=== PATIENT | male | born 1945 | race Caucasian/White ===

== ENCOUNTER → 2017-11-13 11:47 | Outpatient (CLI) | payer MEDICARE, MEDICAID, SELFPAY ==
--- NOTE | 2017-11-13 13:20 | STRESSREP ---
Stress Test Report Treadmill EKG results: Resting EKG: Normal sinus rhythm, normal axis, normal intervals. Treadmill EKG: The patient exercise according to Puneet protocol for 5 minutes and 0 seconds achieving a maximum workload of 7.00 METS. Resting heart rate was initially 66 beats a minute and myriam to maximum 130 bpm which represents 87% of the maximal age-predicted heart rate. Resting blood pressure is 130/70 and myriam to maximum 172/70. Test was terminated due to dyspnea and leg pain. During exercise the patient's heart rate increased as expected. Patient had no dynamic EKG changes to suggest ischemia. Rare PVCs noted. Conclusions: Normal, adequate treadmill EKG. Negative for ischemia by EKG criteria. No anginal symptoms noted. Rare PVCs noted. Appropriate blood pressure response to exercise. Average exercise capacity for age.
--- NOTE | 2017-11-17 11:53 | LEAS ---
Arterial Study - Arterial Study Arterial Study: This is a 72-year-old male who presents with hypertension and lower extremity pain and cramping with ambulation. The patient has a known history of smoking. Suspecting the presence of atherosclerotic peripheral arterial occlusive disease and intermittent claudication, the patient was brought to the noninvasive vascular laboratory at this time for the purpose of bilateral noninvasive lower extremity arterial assessment. Doppler signal assessment was used to evaluate the pulses at ankle level bilaterally. The posterior tibial and dorsalis pedis pulses were biphasic bilaterally. Segmental limb pressures were obtained bilaterally. The right ankle pressure, as determined by posterior tibial pulse, was measured at 104 mmHg. The right ankle pressure, as determined by dorsalis pedis pulse, was measured at 111 mmHg. The right digital pressure was measured at 72 mmHg. The left ankle pressure, as determined by posterior tibial pulse, was measured at 104 mmHg. The left ankle pressure, as determined by dorsalis pedis pulse, was measured at 124 mmHg. The left digital pressure was measured at 84 mmHg. Pulse-volume recordings were obtained at ankle and digital levels bilaterally. Waveform amplitudes appeared to be satisfactory bilaterally. Resting ankle-brachial indices were calculated bilaterally. The resting right ankle-brachial index was calculated to be 0.75. The resting left ankle-brachial index was calculated be 0.84. Digital-brachial indices were calculated bilaterally. The right digital-brachial index was calculated to be 0.49. The left digital-brachial index was calculated to be 0.57. 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 Biphasic waveforms are noted at ankle level bilaterally. The resting right ankle-brachial index is moderately diminished, and the right digital-brachial index is moderately diminished, suggesting the presence of moderate arterial occlusive disease in the right lower extremity. The resting left ankle-brachial index is mildly diminished, and the left digital-brachial index is mildly diminished, consistent with mild arterial occlusive disease in the left lower extremity. Clinical correlation is advised.
== END ==
PROVIDERS: Family Provider Family Medicine; PCP Family Medicine
DX: R07.89 Other chest pain (principal); I10 Essential (primary) hypertension; I73.9 Peripheral vascular disease, unspecified; Z87.891 Personal history of nicotine dependence
CPT/HCPCS: 93017; 93922

== ENCOUNTER 2022-04-25 13:54 | Emergency (ER) | payer MEDICARE, MEDICAID, SELFPAY ==
[2022-04-25 13:54] VITALS: BP 219/95; PULSE 64; RESP 16; TEMP 36.2; O2SAT 99; BMI 25.0
[2022-04-25 14:06] VITALS: BP 211/91; PULSE 61; RESP 18; O2SAT 98
--- NOTE | 2022-04-25 14:36 | EKG12_ITS ---
Test Reason : HTN Blood Pressure : / mmHG Vent. Rate : 056 BPM Atrial Rate : 056 BPM P-R Int : 162 ms QRS Dur : 106 ms QT Int : 420 ms P-R-T Axes : 041 -23 048 degrees QTc Int : 405 ms Sinus bradycardia Minimal voltage criteria for LVH, may be normal variant ( Sami product ) Borderline ECG Confirmed by MARYANA NO, [facility] ([id number]), metropolitan editor NANCY EASON ([id number]) on 04/27/2022 8:56:33 AM Referred By: Confirmed By:JACLYN MIJARES MD
--- NOTE | 2022-04-25 14:38 | EDS_ITS ---
HPI History of Present Illness Chief Complaint: Hypertension Informant: patient and spouse/S.O. Narrative Narrative: Patient present secondary to elevated blood pressure. He was seen by Dr. Puneet Thomas last week due to intermittent burning sensation in the left side of his chest that is been ongoing for months. He was unsure if it was lung related or cardiac. Patient's blood pressure in the office was [address] Thomas had ordered an echocardiogram and patient is scheduled to see cardiology next week. Patient was in today for his echocardiogram and his blood pressure was over 200 systolic and he was encouraged to come to the emergency room. Patient states he has been getting a burning chest pain in the left chest with exertion that improves with rest for the last several months. He denies dyspnea. He has not been having headaches. His primary care physician is in [facility]. He goes back for physical exams every 3 months. He states he had been told in the past that he had high blood pressure and was on lisinopril and amlodipine for a short time. When he went back to see his primary care physician he was told to stop taking the medication because he did not have high blood pressure. He has not been on it in a couple years. [facility] Medical History Anxiety BPH (benign prostatic hyperplasia) Chest pain Dizziness Essential hypertension Hyperlipidemia TIA (transient ischemic attack) Home Medications aspirin 81 mg tablet,delayed release (Adult Aspirin Regimen) 81 mg PO DAILY 11/18/17 [History Last Taken Unknown] clopidogrel 75 mg tablet (Plavix) 75 mg PO DAILY 04/19/22 [History Last Taken Unknown] Allergy/AdvReac Type Severity Reaction Status Date / Time No Known Allergies Allergy Verified 04/19/22 07:15 Family History Mother Alcohol abuse Father Psychiatric problem Grandfather Cancer Social History Smoking Status: Never smoker ROS ROS ED Constitutional Constitutional ED: Denies chills or fever(s) Eyes Eyes: Denies change in vision or discharge from eye(s) ENT ENT ED: Denies discharge from eye(s), rhinorrhea or sore throat Cardiovascular Cardiovascular: Reports chest pain; Denies palpitations Respiratory/Chest Respiratory/Chest: Denies cough or dyspnea Gastrointestinal Gastrointestinal: Denies abdominal pain, diarrhea, nausea or vomiting Genitourinary Genitourinary ED: Denies dysuria Musculoskeletal Musculoskeletal: Denies back pain or extremity pain Integumentary Denies Abrasions or rash Neurologic Neurologic: Denies headache(s) or weakness Allergic/Immunologic Allergic/Immunologic ED: Denies lip swelling or urticaria EXAM Physical Exam Const Vital Signs: 04/25/22 13:54 04/25/22 14:04 04/25/22 14:06 Temperature 97.2 F L Temperature Source Temporal Pulse Rate 64 61 Respiratory Rate 16 18 Respiratory Effort Normal Respiratory Pattern Normal Blood Pressure 219/95 H 211/91 H Blood Pressure Mean 136 131 Pulse Ox 99 98 Oxygen Delivery Method Room Air Room Air 04/25/22 15:00 04/25/22 16:00 Temperature Temperature Source Pulse Rate 56 L 56 L Respiratory Rate 18 18 Respiratory Effort Respiratory Pattern Blood Pressure 192/87 H 180/82 H Blood Pressure Mean 122 114 Pulse Ox 99 98 Oxygen Delivery Method Room Air Room Air Positive well nourished and well developed General Appearance ED: well developed HEENT Reports normocephalic and head/scalp atraumatic Eyes PERRL and EOMs intact bilaterally Neck supple Chest Wall inspection of chest normal and palpation of chest normal Resp normal respiratory effort and clear to auscultation bilaterally Cardio regular rate and regular rhythm GI normal to inspection, nondistended, normoactive bowel sounds Palpation: soft Extremity normal to inspection Neuro oriented x3 and no sensory deficits noted Sensorium / Orientation: alert Motor Exam: strength 5/5 throughout Psych mental status grossly normal Skin no rashes or lesions noted MDM MDM MDM Narrative Medical decision making narrative: Patient placed on landing scaler. EKG obtained given the patient has been having episodes of chest pain. Lab work obtained to evaluate for anemia or electrolyte derangement. Troponin obtained to evaluate for cardiac ischemia/damage. Patient was given 10 mg of IV labetalol. Lab Data Attestation: I reviewed the patient's lab results. Labs: Laboratory Results - last 24 hr 04/25/22 04/25/22 14:55 14:55 WBC 6.3 RBC 4.55 L Hgb 14.5 Hct 43.0 MCV 94.5 H MCH 31.9 MCHC 33.7 RDW Std Deviation 46.1 H RDW Coeff of Rahul 13.3 Plt Count 238 MPV 9.5 Immature Gran % (Auto) 0.300 Neut % (Auto) 56.4 Lymph % (Auto) 29.7 Pitkin % (Auto) 10.6 H Eos % (Auto) 2.4 Baso % (Auto) 0.6 Absolute Neuts (auto) 3.6 Absolute Lymphs (auto) 1.87 Nucleated RBC % 0 Sodium 142 Potassium 3.3 L Chloride 106 Carbon Dioxide 30.0 Anion Gap 6 BUN 11 Creatinine 0.93 Estim Creat Clear Calc 63.18 Est GFR (MDRD) Af Amer 102 Est GFR (MDRD) Non-Af 84 BUN/Creatinine Ratio 11.9 Glucose 93 Calcium 8.9 Troponin I High Sens 22 Radiography Chest X-Ray - ED: 1 View, Read by ED Physician and Chronic Changes Diagnostic Testing: Clinical Impression(s) from Imaging Studies Chest X-Ray 04/25/22 15:23 IMPRESSION: Hyperinflation. Minimal increased markings at the right lung base. This may represent either atelectasis and/or scarring. Electronically Signed: Corona Burris MD at 15:38 EST , EKG Initial EKG: Attestation: I personally reviewed and interpreted this EKG as follows: Interpretation: Sinus Bradycardia (Sinus bradycardia 56 bpm. No acute ischemia.) Treatment and Re-Evaluation Narrative: On repeat evaluation patient resting comfortably. Systolic blood pressure is now in the 170s. CBC and chemistry studies are unremarkable other than slightly low potassium at 3.3. This is replaced orally.. Troponin is normal. Patient is scheduled to see cardiology in 4 days. He has amlodipine and lisinopril at home. He will take this medication until he is seen early next week. At that time cardiology will better be able to evaluate whether this medication is sufficient for him or whether dose needs changed or a different medication. Patient is comfortable with this plan. Return instructions given. Discharge Plan Triage Chief Complaint: Hypertension ED Provider: Monserrat Davis Dx/Rx/DC Orders Clinical Impression: Hypertension, Chest pain Instructions: ED Hypertension New Begin Treatment Prescriptions: No Action aspirin [Adult Aspirin Regimen] 81 mg tablet,delayed release (DR/EC) 81 mg PO DAILY clopidogrel [Plavix] 75 mg tablet 75 mg PO DAILY Primary Care Provider: Vishal Ham Referrals: Vishal Ham MD [Primary Care Provider] - Activity Restrictions/Additional Instructions: As discussed, please follow-up with cardiology next week as scheduled. In the meantime, please take the lisinopril/amlodipine that you have at home. They will better be able to evaluate whether this medication will be sufficient to control your blood pressure or whether a different medication may be required. If you have a blood pressure cuff available, please check your blood pressure a couple times a day and keep a journal as this will help the doctor determine what medication is best for you. Disposition Disposition: Home, Self Care
--- NOTE | 2022-04-25 14:44 | NURSING ---
NO OLD EKGS
[2022-04-25 15:00] VITALS: BP 192/87; PULSE 56; RESP 18; O2SAT 99
[2022-04-25 15:06] LABS: Absolute Lymphocyte Count 1.87 X10^3/uL (0.83-4.51); Absolute Neutrophil Count 3.6 X10^3/uL (2.0-7.7); Basophil# 0.04 X10^3/uL; Basophil% 0.6 % (0-1); Eosinophil# 0.15 X10^3/uL; Eosinophils% 2.4 % (0-5); Hemoglobin 14.5 g/dL (13.0-16.5); Lymphocyte # 1.87 X10^3/ul (0.83-4.51); Lymphocyte % 29.7 % (19-41); Mean Corp Hgb Conc 33.7 g/dL (32-36); Mean Corpuscular Hgb 31.9 pg (27.0-32.0); Mean Corpuscular Volume 94.5 fL (80-94); Mean Platelet Vol. 9.5 fl (6.2-12.0); Monocyte# 0.67 X10^3/uL; Monocyte% 10.6 % (0-10); NRBC Flagged by Analyzer 0 % (0-5); Neutrophil # 3.55 X10^3/uL (2.7-7.7); Neutrophil % 56.4 % (47-70); Platelet Count 238 K/mm3 (150-450); RBC Distribution Width CV 13.3 % (11.6-14.6); RBC Distribution Width SD 46.1 fl (35.1-43.9); Red Blood Count 4.55 M/mm3 (4.6-6.2); White Blood Count 6.3 K/mm3 (4.4-11.0)
--- NOTE | 2022-04-25 15:23 | RAD_ITS ---
STUDY: X-RAY CHEST REASON FOR EXAM: Male, 76 years old. Cp TECHNIQUE: Single AP portable view of the chest. COMPARISON: None. FINDINGS: EKG electrodes are seen. Hyperinflation. Minimal increased markings at the right lung base. There is no demonstrated pleural abnormality. Normal size heart. Normal mediastinum and winston. Normal visualized pulmonary arteries. There is atherosclerotic tortuosity of the aortic arch and descending thoracic aorta. There are diffuse degenerative changes of the visualized thoracic spine. Normal visualized ribs, clavicles, and shoulders. There is no demonstrated abnormality of the visualized soft tissue structures of the upper abdomen. RAD/Chest 1 View (Portable) IMPRESSION: Hyperinflation. Minimal increased markings at the right lung base. This may represent either atelectasis and/or scarring. Electronically Signed: Corona Burris MD at 15:38 EST ,
[2022-04-25 15:27] LABS: Anion Gap 6 (5-15); BUN 11 mg/dL (7-18); BUN/Creat Ratio 11.9 RATIO (10-20); Calcium,Total 8.9 mg/dL (8.5-10.1); Chloride 106 mmol/L (98-107); Creatinine, Serum 0.93 mg/dL (0.70-1.30); EST Glomerular Filtration Rate 84 mL/min (>60); Est Glom Filt Rate - Afr Amer 102 mL/min (>60); Estimated Creatinine Clearance 63.18 ml/min; Glucose 93 mg/dL (74-106); Potassium 3.3 mmol/L (3.5-5.1); Sodium Level 142 mmol/L (136-145); Troponin-I HS 22 pg/mL (3.0-78.0)
[2022-04-25] MEDS: Labetalol (Prefilled) 20 MG/4 ML 10 MG IV (15:32)
[2022-04-25] MEDS: Potassium Chloride Oral Tablet 20 MEQ 40 MEQ PO (15:52)
[2022-04-25 16:00] VITALS: BP 180/82; PULSE 56; RESP 18; O2SAT 98
[2022-04-25 17:02] VITALS: BP 179/81; PULSE 78; RESP 16; O2SAT 99
== END 2022-04-25 17:16 | disposition home or self-care (01) ==
PROVIDERS: Emergency Provider Emergency Medicine; PCP Family Medicine; Visit Provider Emergency Medicine
DX: I10 Essential (primary) hypertension (principal); R07.9 Chest pain, unspecified; E78.5 Hyperlipidemia, unspecified; Z86.73 Personal history of transient ischemic attack (TIA), and cerebral infarction without residual deficits; Z79.82 Long term (current) use of aspirin; R06.02 Shortness of breath; I07.1 Rheumatic tricuspid insufficiency
CPT/HCPCS: 71045; 80048; 84484; 85025; 93005; 93306; 96374; 99284

== ENCOUNTER → 2022-04-25 | Outpatient (CLI) | payer MEDICARE, MEDICAID, SELFPAY ==
--- NOTE | 2022-04-25 13:01 | ECHOD_ITS ---
Reason For Study: SOB Procedure This was a 2D Doppler, Color Flow transthoracic echocardiogram. The study was technically difficult. Exam performed in department. Left Ventricle Normal LV size. Left ventricular systolic function is normal. Stage 1 diastolic dysfunction. The estimated ejection fraction is 55 %. No regional wall motion abnormalities noted. Right Ventricle Normal RV size. Normal systolic function. Atria Normal left atrium. Normal right atrium. Mitral Valve Normal mitral valve. Mild (1+) mitral valve insufficiency. Tricuspid Valve Normal tricuspid valve. Mild tricuspid valve insufficiency. Aortic Valve Trisinus/trileaflet aortic valve. Great Vessels Normal aortic root. The pulmonary artery is normal size. Normal inferior vena cava. Pericardium/Pleural No pericardial effusion. MMode/2D Measurements & Calculations LVIDd: 5.1 cm IVSd: 1.3 cm LA dimension: 3.1 cm LVIDs: 3.4 cm LVPWd: 1.0 cm RVDd: 3.4 cm FS: 32.7 % LAV(MOD-bp): 51.5 ml LA A4 area: 18.6 cm2 RA A4 area: 13.1 cm2 LAV(MOD-bp) Indexed: 27.6 ml/m2 LAV(MOD-sp2): 49.4 ml LAV(MOD-sp4): 54.2 ml Time Measurements MV dec time: 0.34 sec Doppler Measurements & Calculations MV E max alan: 57.5 cm/sec Lat Peak E' Alan: 9.2 cm/sec Med Peak E' Alan: 6.9 cm/sec MV A max alan: 59.6 cm/sec E/E' lat: 6.2 E/E' med: 8.3 MV E/A: 0.96 MV V2 max: 62.7 cm/sec MV P1/2t max alan: 63.1 cm/sec Ao V2 max: 130.0 cm/sec MV max P.6 mmHg MV P1/2t: 107.4 msec Ao max P.8 mmHg MV V2 mean: 36.0 cm/sec Ao V2 mean: 91.7 cm/sec MV mean P.62 mmHg MV dec slope: 172.2 cm/sec2 Ao mean P.8 mmHg MV V2 VTI: 22.7 cm MVA(P1/2t): 2.0 cm2 Ao V2 VTI: 31.9 cm AV (velocity ratio): 0.55 AI max alan: 285.8 cm/sec LV V1 max: 85.1 cm/sec MR max alan: 439.2 cm/sec AI max P.7 mmHg LV V1 max P.9 mmHg MR max P.2 mmHg LV V1 mean P.5 mmHg AI dec slope: 120.1 cm/sec2 LV V1 mean: 58.3 cm/sec AI P1/2t: 697.1 msec LV V1 VTI: 17.4 cm PA V2 max: 101.6 cm/sec TR max alan: 260.8 cm/sec TR max P.2 mmHg ECHO/Echo Complete Interpretation Summary Normal LV size. Left ventricular systolic function is normal. Stage 1 diastolic dysfunction. The estimated ejection fraction is 55 %. Mild tricuspid valve insufficiency. Ordering Physician: Puneet Thomas Referring Physician: Puneet Thomas Performed By: Luis Norman RCS
== END | disposition home or self-care (01) ==
PROVIDERS: PCP Family Medicine; Referring Provider Internal Medicine Critical Care Medicine; Visit Provider Internal Medicine Critical Care Medicine
DX: R06.02 Shortness of breath (principal); I07.1 Rheumatic tricuspid insufficiency
CPT/HCPCS: 93306

== ENCOUNTER → 2022-04-26 | Outpatient (CLI) | payer MEDICARE, MEDICAID, SELFPAY | END | disposition home or self-care (01) | PROVIDERS: PCP Family Medicine; Referring Provider Internal Medicine Critical Care Medicine; Visit Provider Internal Medicine Critical Care Medicine | DX: R06.02 Shortness of breath (principal) ==

== ENCOUNTER → 2022-05-03 | Outpatient (CLI) | payer MEDICARE, MEDICAID, SELFPAY ==
[2022-05-03 16:58] LABS: BUN 17 mg/dL (7-18); BUN/Creat Ratio 16.7 RATIO (10-20); Calcium,Total 9.5 mg/dL (8.5-10.1); Cholesterol 211 mg/dL (200); Creatinine, Serum 1.02 mg/dL (0.70-1.30); EST Glomerular Filtration Rate 75 mL/min (>60); Est Glom Filt Rate - Afr Amer 91 mL/min (>60); Glucose 93 mg/dL (74-106); Triglycerides 136 mg/dL
[2022-05-03 16:59] LABS: Anion Gap 7 (5-15); Chloride 99 mmol/L (98-107); High Density Lipoprotein 56 mg/dL; Potassium 3.1 mmol/L (3.5-5.1); Sodium Level 137 mmol/L (136-145); Thyroid Stim Hormone (TSH) 1.64 uIU/mL (0.358-3.74); Very Low Density Lipoprotein 27 mg/dL (5-40)
--- NOTE | 2022-05-07 16:32 | PFTCOMP ---
COMPLETE PULMONARY FUNCTION TEST INTERPRETATION Brief HPI: Patient is a 76-year-old male, currently under the care of myself, who presents to [facility] for complete pulmonary function tests secondary to diagnosis of dyspnea. Respiratory therapist reports good effort and reproducible results. Patient refused plethysmography secondary to claustrophobia. Interpretation: Forced expiration spirometry shows no large airways obstructive ventilatory defect with an FEV1 of 111% predicted. There is no significant bronchodilator response by strict ATS criteria. Spirograms are of good quality and plateau normally. The respiratory flow volume loop shows a normal pattern. Diffusion capacity by carbon monoxide is normal at 109% predicted. The airway resistance is not calculated. No previous pulmonary function tests were available for review. Impression: Normal spirometry and diffusion capacity
== END | disposition home or self-care (01) ==
PROVIDERS: Internal Medicine Cardiovascular Disease; PCP Family Medicine; Referring Provider Internal Medicine Critical Care Medicine; Visit Provider Internal Medicine Critical Care Medicine
DX: R06.02 Shortness of breath (principal); I10 Essential (primary) hypertension; R07.9 Chest pain, unspecified; E78.5 Hyperlipidemia, unspecified
CPT/HCPCS: 36415; 80048; 80061; 84443; 94060; 94729

== ENCOUNTER → 2022-05-08 | Outpatient (CLI) | payer MEDICARE, MEDICAID, SELFPAY ==
[2022-05-08 13:49] VITALS: PULSE 101; PULSE 105; PULSE 108; PULSE 109; PULSE 98; PULSE 99; O2SAT 96; O2SAT 97; O2SAT 98
--- NOTE | 2022-05-08 15:48 | PCM.PSN.6M ---
PSN 6 Minute Walk Test 6 Minute Walk Test 6 Minute Walk Test: 6 Minute Walk Test PSN:6-Minute Walk Test Start: 05/08/22 13:49 Freq: Status: Active Protocol: [id number].[id number] Document 05/08/22 13:49 ERIBERTO (Rec: 05/08/22 13:51 ERIBERTO [id number]) 6 Minute Walk Test Date Performed 05/08/22 Time Performed 13:00 Height 5 ft 7 in Weight: 71.668 kg Weight in Pounds 158.[address]: Puneet Thomas Assistive device used: None Pre-test Oxygen Delivery Method Room Air Pulse Ox (%) 97 Pulse Rate (60-100 beats/min) 99 Dyspnea Fiona Scale (0-10) 0 Exertion Fiona Scale (6-20) 6 1st minute Oxygen Delivery Method Room Air Pulse Ox (%) 97 Pulse Rate (60-100 beats/min) 99 2nd minute Oxygen Delivery Method Room Air Pulse Ox (%) 96 Pulse Rate (60-100 beats/min) 101 H 3rd minute Oxygen Delivery Method Room Air Pulse Ox (%) 96 Pulse Rate (60-100 beats/min) 101 H 4th minute Oxygen Delivery Method Room Air Pulse Ox (%) 98 Pulse Rate (60-100 beats/min) 105 H 5th minute Oxygen Delivery Method Room Air Pulse Ox (%) 97 Pulse Rate (60-100 beats/min) 108 H 6th minute Oxygen Delivery Method Room Air Pulse Ox (%) 97 Pulse Rate (60-100 beats/min) 109 H Post-test Oxygen Delivery Method Room Air Pulse Ox (%) 97 Pulse Rate (60-100 beats/min) 98 Full Laps Walked 13 Partial Lap, Number of Tiles Walked 12 Total Distance Walked (ft) 779 Interpretation Interpretation: The patient was able to ambulate 779 feet over the course of 6 minutes on room air with no assistive devices or breaks. The patient experienced no significant desaturation, but did have tachycardia as high as 109 bpm noted during testing. These findings are consistent with a cardiovascular limitation exercise tolerance. Recommendations Recommendations: No supplemental oxygen is indicated at this time.
== END | disposition home or self-care (01) ==
LOC: PSN 12:59
PROVIDERS: PCP Family Medicine; Referring Provider Internal Medicine Critical Care Medicine; Visit Provider Internal Medicine Critical Care Medicine
DX: R07.9 Chest pain, unspecified (principal); I10 Essential (primary) hypertension
CPT/HCPCS: 94618

== ENCOUNTER 2023-10-21 21:33 | Emergency (ER) | payer MEDICARE, MEDICAID, SELFPAY ==
[2023-10-21 21:37] VITALS: BP 196/82; PULSE 86; RESP 18; TEMP 36.6; O2SAT 99; BMI 24.5
--- NOTE | 2023-10-21 22:18 | EKG12_ITS ---
Test Reason : WEAKNESS Blood Pressure : / mmHG Vent. Rate : 063 BPM Atrial Rate : 063 BPM P-R Int : 164 ms QRS Dur : 102 ms QT Int : 380 ms P-R-T Axes : 036 -20 051 degrees QTc Int : 388 ms Normal sinus rhythm Minimal voltage criteria for LVH, may be normal variant ( Sami product ) Borderline ECG Confirmed by MARYANA NO, [facility] ([id number]), multimedia editor INNA VIDAL ([id number]) on 10/25/2023 10:10:07 AM Referred By: Confirmed By:JACLYN MIJARES MD
--- NOTE | 2023-10-21 22:18 | CT_ITS ---
EXAM: CT HEAD WITHOUT INTRAVENOUS CONTRAST CLINICAL INDICATION: weakness, BLE TECHNIQUE: Multiple axial images were obtained of the head without intravenous contrast. This CT exam was performed using one or more of the following dose reduction techniques: automated exposure control, adjustment of the mA and/or kV according to patient size, and/or use of iterative reconstruction technique. COMPARISON: No relevant prior studies available. FINDINGS: BRAIN AND EXTRA-AXIAL SPACES: Unremarkable. No intra- or extra-axial hemorrhage. No evidence of acute infarct. No intracranial mass or mass effect. There is preservation of the hernández/white matter interface. Posterior fossa structures are unremarkable. Ventricles are appropriate for age. No hydrocephalus. Basal cisterns are patent. BONES/JOINTS: Unremarkable. No discrete lytic or blastic abnormalities. SINUSES: Unremarkable as visualized. Clear. MASTOID AIR CELLS: Unremarkable. Clear. ORBITS: Visualized globes, extraocular muscles, optic nerves and retrobulbar fat appear unremarkable. CT/Brain/Head without Contrast IMPRESSION: Negative head/brain CT without intravenous contrast. Electronically Signed: Bertin Terry MD at 23:15 EDT ,
--- NOTE | 2023-10-21 22:21 | EX.ED.DYSGE1 ---
HPI History of Present Illness Chief Complaint: Weakness Informant: patient, spouse/S.O. and family Narrative Narrative: 78-year-old male presenting because he feels weak mostly in his legs, he is seen at about 10 PM and he states that he has felt like this all day since he woke up this morning. He went to bed at about 3 AM, took an Ativan before going to bed which he usually does, and states when he went to bed he did not feel the weakness in his legs. States he has been on Ativan for the past 1.5 years and wants to get off of it, it is his only medication prior to going to the ER 2 days ago and can for chest discomfort and indigestion and belching, they worked him up for cardiac causes and discharged him on amlodipine 5 mg. He states he used to be on blood pressure medication a long time ago but he took himself off of it and then his doctor told him that his blood pressure was doing okay in order for him to stay off of it. He states he has had no recurrent chest discomfort since 2 days ago, and when asked about weakness in his arms, he states they feel fine and they have all day but his family keeps asking him why he told them earlier that his left arm was feeling weak and he continues to deny feeling that earlier. [facility] Medical History Hypertension TIA (transient ischemic attack) Essential hypertension BPH (benign prostatic hyperplasia) Hyperlipidemia Dizziness Anxiety Chest pain Home Medications ?Medication ?Instructions ?Recorded ?Last Taken ?Type famotidine 20 mg tablet 20 mg PO BID 10/21/23 Unknown History lorazepam 0.5 mg tablet 0.5 mg PO DAILY 10/21/23 Unknown History amlodipine 5 mg tablet 10 mg (2 x 5 mg) PO DAILY #60 tabs 10/22/23 Unknown Rx lisinopril 20 mg tablet 20 mg PO DAILY #30 tabs 10/22/23 Unknown Rx Allergy/AdvReac Type Severity Reaction Status Date / Time No Known Allergies Allergy Verified 10/21/23 21:37 Family History (Reviewed 07/11/22 @ 13:11 by Natali Barba BALL TRUING MACHINE OPERATOR, BALL TRUING MACHINE OPERATOR-C) Mother Alcohol abuse Father Psychiatric problem Grandfather Cancer Social History Smoking Status: Never smoker alcohol intake: never substance use type: does not use caffeine: Yes Type: coffee Number of servings: 3 and tea Number of servings: 15 ROS ROS ED Constitutional Constitutional ED: Denies chills or fever(s) Eyes Eyes: Denies change in vision or diplopia ENT ENT ED: Denies rhinorrhea or sore throat Cardiovascular Cardiovascular: Denies chest pain or palpitations Respiratory/Chest Respiratory/Chest: Denies cough or dyspnea Gastrointestinal Gastrointestinal: Denies abdominal pain, diarrhea, hematochezia, melena, nausea or vomiting Genitourinary Genitourinary ED: Denies dysuria or hematuria Musculoskeletal Musculoskeletal: Denies back pain or neck pain Integumentary Denies abscess or rash Neurologic Neurologic: Reports as per HPI and weakness; Denies headache(s) or paresthesias Psychiatric Psychiatric: Denies suicidal thoughts EXAM Physical Exam Const Vital Signs: 10/21/23 21:37 10/21/23 21:42 10/21/23 23:01 Temperature 97.8 F 98.1 F Temperature Source Temporal Oral Pulse Rate 86 Respiratory Rate 18 Respiratory Effort Normal Respiratory Pattern Normal Blood Pressure 196/82 H Blood Pressure Mean 120 Pulse Ox 99 Oxygen Delivery Method Room Air 10/22/23 00:16 Temperature Temperature Source Pulse Rate 77 Respiratory Rate 20 H Respiratory Effort Respiratory Pattern Blood Pressure 178/87 H Blood Pressure Mean 117 Pulse Ox 100 Oxygen Delivery Method Room Air Positive well nourished and well developed General Appearance ED: well developed and NAD HEENT Reports moist mucous membranes normocephalic and atraumatic Eyes PERRL and EOMs intact bilaterally Neck full ROM and supple Resp normal respiratory effort and clear to auscultation bilaterally Cardio regular rate, regular rhythm and no murmurs GI non-tender and non-distended Auscultation: normoactive bowel sounds Palpation: soft Back/Spine no CVA tenderness General Back: other FROM Extremity normal to inspection General Extremety ED: Negative for edema, pulses abnormal or tenderness General Extremity: Negative for edema or pulses abnormal Neuro oriented x3, CN's II-XII intact bilaterally and no sensory deficits noted Sensorium / Orientation: awake and alert Motor Exam: strength 5/5 throughout Skin no rashes or lesions noted and no wounds NIHSS NIHSS Initial: 1a Level of Consciousness: 0 1b LOC Questions (Score 2 if aphasic/stupor): 0 1c LOC Commands (Only score 1st attempt): 0 2 Best Gaze (If aphasic, use reflexive mvmts.): 0 3 Visual: 0 4 Facial Palsy: 0 5 Motor Arm Right (UN = amputation/fusion): 0 5 Motor Arm Left: 0 6 Motor Leg Right: 0 6 Motor Leg Left: 0 7 Limb ataxia (Only + if out of proportion): 0 8 Sensory (Aphasia/stupor=0 or 1, coma=2): 0 9 Best Language: 0 10 Dysarthria (mute, coma=2, intubated=UN): 0 11 Extinction and Inattention (only scored if +): 0 Total Score: 0 MDM MDM MDM Narrative Medical decision making narrative: This 78-year-old basically feels generally weak but he thinks his legs are worse and his left leg may feel worse than his right. Objectively, I detect no focal neurologic deficits and his NIH is 0. Therefore and considering primary neurologic causes of obtaining a CT of the head, but I am not calling a stroke team although he technically was last known well within 24 hours, it was close to that and he has an NIH of 0 with no posterior circulation symptoms. Also considering other causes of generalized weakness in an elderly male such as infections, cardiopulmonary etiologies, metabolic disorders such as anemia or renal failure, etc. His labs are noted and normal. His urinalysis shows no signs of an infection. His EKG and troponin are normal. Chest x-ray 2 views of my interpretation showed no pneumonia. COVID/influenza/RSV swab is negative. I reviewed his CT head images as well as the report which I agree with, it is negative for nothing acute just age-related changes. While obtaining all of these test, I gave him some hydralazine because his blood pressure was very high which also could cause him to feel poorly. It did not help his pressure at all. Therefore I additionally gave him IV labetalol and clonidine. He tolerated all of this very well, on reevaluation his blood pressure is 141/71 he is ambulatory and does feel better than he did earlier with regards to the weakness in his legs. He states at home he was shuffling, now he states he is able to walk more like normal and feels better. Possibly, this was all due to his blood pressure. I do not see an obvious reason why it would be elevated unless it has been gradually getting worse with age or suddenly got worse because of a different medical issue, such as renal artery stenosis, peripheral vascular-related essential hypertension, less likely to be high levels of metanephrines given his lack of tachycardia, fever, and/or other symptoms. At this time I think reasonable to address his blood pressure I do not think he has to stay in the hospital, he can follow-up closely with his PCP. He is only on amlodipine 5 mg and it has only been a couple of days. As I discussed with him, that is not likely to help him very much, and it may not really show major changes in his blood pressure for a week. I am increasing that to 10 mg and starting him on lisinopril 20 mg which he states he used to be on in the past and tolerated well. Discussed all of this he is comfortable with that plan. Lab Data Attestation: I reviewed the patient's lab results. Labs: Laboratory Results - last 24 hr 10/21/23 10/21/23 21:50 22:30 WBC 7.5 RBC 5.02 Hgb 15.6 Hct 46.4 MCV 92.4 MCH 31.1 MCHC 33.6 RDW Std Deviation 46.3 H RDW Coeff of Rahul 13.5 Plt Count 237 MPV 9.2 Immature Gran % (Auto) 0.300 Neut % (Auto) 62.4 Lymph % (Auto) 27.6 [place] % (Auto) 8.1 Eos % (Auto) 1.1 Baso % (Auto) 0.5 Absolute Neuts (auto) 4.7 Absolute Lymphs (auto) 2.07 Nucleated RBC % 0 Sodium 136 Potassium 3.6 Chloride 105 Carbon Dioxide 27.0 Anion Gap 4 L BUN 12 Creatinine 1.05 Estim Creat Clear Calc 54.21 Est GFR (MDRD) Af Amer 88 Est GFR (MDRD) Non-Af 73 BUN/Creatinine Ratio 11.4 Glucose 138 H Calcium 9.2 Total Bilirubin 0.40 AST 29 ALT 34 Alkaline Phosphatase 76 Troponin I High Sens 46 Total Protein 8.3 H Albumin 3.6 Globulin 4.7 H Albumin/Globulin Ratio 0.8 L Urine Color Yellow Urine Clarity Clear Urine pH 6.0 Ur Specific [place] 1.015 Urine Protein 15 H Urine Glucose (UA) Normal Urine Ketones Negative Urine Occult Blood 10 H Urine Nitrite Negative Urine Bilirubin Negative Urine Urobilinogen Normal Ur Leukocyte Esterase 25 H Urine RBC 0-5 SEEN Urine WBC 0-5 SEEN Ur Squamous Epith Cells 0 SEEN Urine Bacteria 0 SEEN Urine Mucus 0 SEEN Radiography Diagnostic Testing: Clinical Impression(s) from Imaging Studies Brain CT 10/21/23 22:18 IMPRESSION: Negative head/brain CT without intravenous contrast. Electronically Signed: Bertin Terry MD at 23:15 EDT , Chest X-Ray 10/21/23 22:45 IMPRESSION: No radiographic evidence of acute cardiopulmonary disease. Electronically Signed: Bertin Terry MD at 23:16 EDT , Rhythm Strip Rhythm Strip: Sinus Rhythm Rate: 63 Ectopy: None EKG Initial EKG: Attestation: I personally reviewed and interpreted this EKG as follows: Interpretation: Sinus Rhythm and No Acute Injury Pattern Discharge Plan Triage Chief Complaint: Weakness ED Provider: Camilo Bobo Dx/Rx/DC Orders Clinical Impression: Weakness, Accelerated hypertension Instructions: Hypertension Dc Prescriptions: New lisinopril 20 mg tablet 20 mg PO DAILY Qty: 30 0RF Continued famotidine 20 mg tablet 20 mg PO BID Patient Comments: does not take as directed; pt. does not believe he needs it lorazepam 0.5 mg tablet 0.5 mg PO DAILY Changed amlodipine 5 mg tablet 10 mg PO DAILY Qty: 60 0RF Primary Care Provider: Vishal Ham Referrals: Vishal Ham MD [Primary Care Provider] - As soon as possible Print Language: Pashto Disposition Disposition: Home, Self Care Stroke Documentation Questions Stroke Team Activated: No (NIHSS 0) Was Patient considered for Endovascular Intervention?: No-CTA not indicated
[2023-10-21 22:29] LABS: Absolute Lymphocyte Count 2.07 X10^3/uL (0.83-4.51); Absolute Neutrophil Count 4.7 X10^3/uL (2.0-7.7); Basophil# 0.04 X10^3/uL; Basophil% 0.5 % (0-1); Eosinophil# 0.08 X10^3/uL; Eosinophils% 1.1 % (0-5); Hematocrit 46.4 % (40-54); Hemoglobin 15.6 g/dL (13.0-16.5); Lymphocyte # 2.07 X10^3/ul (0.83-4.51); Lymphocyte % 27.6 % (19-41); Mean Corp Hgb Conc 33.6 g/dL (32-36); Mean Corpuscular Hgb 31.1 pg (27.0-32.0); Mean Corpuscular Volume 92.4 fL (80-94); Mean Platelet Vol. 9.2 fl (6.2-12.0); Monocyte# 0.61 X10^3/uL; Monocyte% 8.1 % (0-10); NRBC Flagged by Analyzer 0 % (0-5); Neutrophil # 4.69 X10^3/uL (2.7-7.7); Neutrophil % 62.4 % (47-70); Platelet Count 237 K/mm3 (150-450); RBC Distribution Width CV 13.5 % (11.6-14.6); RBC Distribution Width SD 46.3 fl (35.1-43.9); Red Blood Count 5.02 M/mm3 (4.6-6.2); White Blood Count 7.5 K/mm3 (4.4-11.0)
[2023-10-21] MEDS: hydrALAZINE 20 MG/ML Vial 10 MG IV (22:36)
[2023-10-21] MEDS: 0.9% Normal Saline (1000mL) 1,000 ML 125 ML IV (22:38)
--- NOTE | 2023-10-21 22:45 | RAD_ITS ---
EXAM: XR CHEST, 2 VIEWS CLINICAL INDICATION: weakness TECHNIQUE: Frontal and lateral views of the chest. COMPARISON: 04/25/2022 FINDINGS: LUNGS AND PLEURAL SPACES: Unremarkable. No consolidation or edema. No pneumothorax. No effusion. HEART: Unremarkable. Cardiac silhouette not enlarged. MEDIASTINUM: Central airways and mediastinal contour are unremarkable. BONES/JOINTS: Unremarkable. No acute fracture. SOFT TISSUES: Unremarkable. RAD/Chest PA and Lateral IMPRESSION: No radiographic evidence of acute cardiopulmonary disease. Electronically Signed: Bertin Terry MD at 23:16 EDT ,
[2023-10-21 22:46] LABS: Bacteria 0 SEEN /hpf (None Seen); Mucous, Urine 0 SEEN /hpf (<or=2+); Squamous Epithelial Cells - UA 0 SEEN /hpf (0-5)
[2023-10-21 22:48] LABS: ALB/GLOB Ratio 0.8 RATIO (0.9-2.4); AST(SGOT) 29 U/L (15-37); Alanine Aminotransfer ALT/SGPT 34 U/L (16-61); Albumin, Serum 3.6 g/dL (3.2-5.0); Alkaline Phosphatase 76 U/L (45-117); Anion Gap 4 (5-15); BUN 12 mg/dL (7-18); BUN/Creat Ratio 11.4 RATIO (10-20); Calcium,Total 9.2 mg/dL (8.5-10.1); Chloride 105 mmol/L (98-107); Creatinine, Serum 1.05 mg/dL (0.70-1.30); EST Glomerular Filtration Rate 73 mL/min (>60); Est Glom Filt Rate - Afr Amer 88 mL/min (>60); Estimated Creatinine Clearance 54.21 ml/min; Globulin 4.7 g/dL (2.2-4.2); Glucose 138 mg/dL (74-106); Potassium 3.6 mmol/L (3.5-5.1); Protein, Total 8.3 g/dL (6.4-8.2); Sodium Level 136 mmol/L (136-145); Troponin-I HS 46 pg/mL (3.0-78.0)
[2023-10-21 22:53] LABS: Color, Urine Yellow (Yellow); Glucose, Dipstick Normal (Normal); Ketone-Dipstick Negative (Negative); Leukocyte Esterase-Dipstick 25 /ul (Negative); Nitrite-Dipstick Negative (Negative); Occult Blood-Urine 10 /ul (Negative); Protein-Dipstick 15 mg/dl (Negative); Specific Gravity, Urine 1.015 (1.002-1.030); Urine Bilirubin Dipstick Negative (Negative); Urine Clarity Clear (Clear); Urine Urobilinogen Normal (Normal)
[2023-10-21 23:01] VITALS: TEMP 36.7
[2023-10-21 23:10] LABS: Red Blood Cells-Urine 0-5 SEEN /hpf (0-5); White Blood Cells 0-5 SEEN /hpf (0-5)
[2023-10-22] MEDS: Labetalol (Prefilled) 20 MG/4 ML 10 MG IV (00:14)
[2023-10-22 00:16] VITALS: BP 178/87; PULSE 77; RESP 20; O2SAT 100
[2023-10-22] MEDS: cloNIDine HCl 0.2 MG Tablet PO (00:37)
[2023-10-22 02:00] VITALS: BP 141/71; PULSE 62; RESP 18; O2SAT 98
[2023-10-22 02:03] VITALS: BP 141/71; PULSE 62; RESP 18; TEMP 36.6; O2SAT 98
== END 2023-10-22 02:12 | disposition home or self-care (01) ==
PROVIDERS: Emergency Provider Emergency Medicine; PCP Family Medicine; Visit Provider Emergency Medicine
DX: R29.898 Other symptoms and signs involving the musculoskeletal system (principal); E78.5 Hyperlipidemia, unspecified; R53.1 Weakness; I10 Essential (primary) hypertension; D63.1 Anemia in chronic kidney disease; Z86.73 Personal history of transient ischemic attack (TIA), and cerebral infarction without residual deficits; N40.0 Benign prostatic hyperplasia without lower urinary tract symptoms
CPT/HCPCS: 70450; 71046; 80053; 81001; 84484; 85025; 87631; 93005; 96361; 96374; 96375; 99284; J7030; A4216